=== PATIENT | male | born 1960 | race Caucasian/White ===

== ENCOUNTER → 2021-02-16 | Outpatient (CLI) | payer SELFPAY | LOC: M LABSMTC 13:02 | PROVIDERS: ATTEND Pediatrics | DX: Z20.822 Contact with and (suspected) exposure to COVID-19 (principal) ==

== ENCOUNTER → 2021-02-25 | Outpatient (CLI) | payer SELFPAY | LOC: M LABSMTC 14:07 | PROVIDERS: ATTEND Pediatrics | DX: Z20.822 Contact with and (suspected) exposure to COVID-19 (principal) ==

== ENCOUNTER → 2022-03-15 | Outpatient (CLI) | payer BC, SELFPAY | LOC: M SOG 14:35 | PROVIDERS: ATTEND Orthopaedic Surgery Adult Reconstructive Orthopaedic Surgery | DX: M25.461 Effusion, right knee (principal); M25.561 Pain in right knee ==

== ENCOUNTER → 2022-04-08 | Outpatient (CLI) | payer BC | LOC: M PLAIMG 15:46 | PROVIDERS: ATTEND Orthopaedic Surgery Adult Reconstructive Orthopaedic Surgery | DX: M70.41 Prepatellar bursitis, right knee (principal); S83.206A Unspecified tear of unspecified meniscus, current injury, right knee, initial encounter; M94.261 Chondromalacia, right knee; M25.461 Effusion, right knee; X58.XXXA Exposure to other specified factors, initial encounter; Y92.9 Unspecified place or not applicable; Y99.9 Unspecified external cause status ==

== ENCOUNTER → 2023-01-25 | Outpatient (CLI) | payer BC ==
[2023-01-25 16:43] LABS: ALBUMIN 3.7 G/DL (3.2-5.2); ALKALINE PHOSPHATASE 86 U/L (46-116); ALT/SGPT 24 U/L (7.0-40); AST/SGOT 20 U/L (<34); BILIRUBIN,TOTAL 0.9 MG/DL (0.3-1.2); BLOOD UREA NITROGEN 16 MG/DL (9-23); CALCIUM LEVEL 9.5 MG/DL (8.3-10.6); CARBON DIOXIDE LEVEL 31 MMOL/L (20-31); CHLORIDE LEVEL 104 MMOL/L (98-107); CHOLESTEROL LEVEL 221 MG/DL (<200); CHOLESTEROL RISK RATIO 3.82 (<5); CREATININE FOR GFR 1.01 MG/DL (0.70-1.30); GLOMERULAR FILTRATION RATE > 60.0 (>49); GLUCOSE, FASTING 84 MG/DL (74-106); HDL CHOLESTEROL 57.8 MG/DL (>40); NON-HDL-C 163 MG/DL; POTASSIUM SERUM 4.5 MMOL/L (3.5-5.1); SODIUM LEVEL 140 MMOL/L (136-145); TOTAL PROTEIN 6.9 G/DL (5.7-8.2); TRIGLYCERIDES LEVEL 71 MG/DL (<150)
[2023-01-25 17:31] LABS: HEMOGLOBIN A1c 5.5 % (4.0-6.0)
== END ==
LOC: M WUC 13:14
PROVIDERS: ATTEND Internal Medicine
DX: E78.5 Hyperlipidemia, unspecified (principal); R73.9 Hyperglycemia, unspecified

== ENCOUNTER → 2023-07-22 | Outpatient (REF) | payer BC ==
[2023-07-22 18:31] LABS: HEMOGLOBIN A1c 5.1 % (4.0-6.0)
[2023-07-22 18:33] LABS: ALBUMIN 3.7 G/DL (3.2-5.2); ALKALINE PHOSPHATASE 78 U/L (46-116); ALT/SGPT 14 U/L (7.0-40); AST/SGOT 10 U/L (<34); BLOOD UREA NITROGEN 14 MG/DL (9-23); CALCIUM LEVEL 8.7 MG/DL (8.3-10.6); CARBON DIOXIDE LEVEL 26 MMOL/L (20-31); CHLORIDE LEVEL 107 MMOL/L (98-107); CHOLESTEROL LEVEL 190 MG/DL (<200); CHOLESTEROL RISK RATIO 3.45 (<5); CREATININE FOR GFR 0.92 MG/DL (0.70-1.30); GLOMERULAR FILTRATION RATE > 60.0 (>49); GLUCOSE, FASTING 75 MG/DL (74-106); LDL CHOLESTEROL 124.2 MG/DL (<100); POTASSIUM SERUM 4.3 MMOL/L (3.5-5.1); SODIUM LEVEL 142 MMOL/L (136-145); TOTAL PROTEIN 6.7 G/DL (5.7-8.2); TRIGLYCERIDES LEVEL 54 MG/DL (<150)
== END ==
LOC: M LABDRAWP 17:50
PROVIDERS: ATTEND Internal Medicine
DX: E78.5 Hyperlipidemia, unspecified (principal); R73.9 Hyperglycemia, unspecified

== ENCOUNTER 2023-12-01 07:43 | Day surgery (SDC) | payer BC ==
[~2023-12-01] VITALS: Ht 165.1 cm; Wt 99.6 kg
[~2023-12-01 07:43] MED LIST: NS 1,000 ML IV ONE; UNRESOLVED CLARIFICATION ENTRY XX SCH; propofoL 200 MG/20 ML VIAL As Ordered ONE
[2023-12-01] MEDS ORDERED: MIDAZOLAM INJ 2MG/2ML VIAL As Ordered ONE (08:46)
[2023-12-01 09:06] VITALS: TEMP 97.2
[2023-12-01 09:25] VITALS: BP 128/69; O2SAT 95
== END 2023-12-01 09:55 | disposition home or self-care (01) ==
LOC: M OPP 07:43
PROVIDERS: ATTEND Internal Medicine Gastroenterology
DX: Z12.11 Encounter for screening for malignant neoplasm of colon (principal); K64.8 Other hemorrhoids; Z86.010 Personal history of colon polyps; Z98.0 Intestinal bypass and anastomosis status; Z87.19 Personal history of other diseases of the digestive system; G47.30 Sleep apnea, unspecified; Z90.49 Acquired absence of other specified parts of digestive tract
CPT/HCPCS: 45378; J2250

== ENCOUNTER → 2024-01-25 | Outpatient (CLI) | payer BC ==
[2024-01-25 13:11] LABS: HEMOGLOBIN A1c 5.5 % (4.0-6.0)
[2024-01-25 13:15] LABS: ALBUMIN 3.8 G/DL (3.2-5.2); ALKALINE PHOSPHATASE 87 U/L (46-116); ALT/SGPT 29 U/L (7.0-40); AST/SGOT 21 U/L (<34); BLOOD UREA NITROGEN 17 MG/DL (9-23); CALCIUM LEVEL 9.3 MG/DL (8.3-10.6); CARBON DIOXIDE LEVEL 30 MMOL/L (20-31); CHLORIDE LEVEL 105 MMOL/L (98-107); CHOLESTEROL LEVEL 215 MG/DL (<200); CREATININE FOR GFR 0.99 MG/DL (0.70-1.30); GLOMERULAR FILTRATION RATE > 60.0 (>49); HDL CHOLESTEROL 51.1 MG/DL (>40); LDL CHOLESTEROL 147.5 MG/DL (<100); NON-HDL-C 163.9 MG/DL; POTASSIUM SERUM 4.7 MMOL/L (3.5-5.1); SODIUM LEVEL 141 MMOL/L (136-145); TRIGLYCERIDES LEVEL 82 MG/DL (<150)
[2024-01-26 10:52] LABS: GLUCOSE, FASTING 89 MG/DL (74-106)
== END ==
LOC: M LAB 12:14
PROVIDERS: ATTEND Internal Medicine
DX: E78.5 Hyperlipidemia, unspecified (principal); R73.9 Hyperglycemia, unspecified

== ENCOUNTER → 2024-07-25 | Outpatient (CLI) | payer BC ==
[2024-07-25 13:27] LABS: HEMOGLOBIN A1c 5.4 % (4.0-6.0)
[2024-07-25 13:41] LABS: ALKALINE PHOSPHATASE 84 U/L (46-116); ALT/SGPT 25 U/L (7.0-40); AST/SGOT 17 U/L (<34); BILIRUBIN,TOTAL 1.3 MG/DL (0.3-1.2); BLOOD UREA NITROGEN 16 MG/DL (9-23); CARBON DIOXIDE LEVEL 30 MMOL/L (20-31); CHLORIDE LEVEL 107 MMOL/L (98-107); CHOLESTEROL LEVEL 206 MG/DL (<200); CHOLESTEROL RISK RATIO 4.28 (<5); CREATININE FOR GFR 1.08 MG/DL (0.70-1.30); GLOMERULAR FILTRATION RATE > 60.0 (>49); GLUCOSE, FASTING 88 MG/DL (74-106); HDL CHOLESTEROL 48.1 MG/DL (>40); LDL CHOLESTEROL 142.5 MG/DL (<100); NON-HDL-C 157.9 MG/DL; POTASSIUM SERUM 4.6 MMOL/L (3.5-5.1); SODIUM LEVEL 138 MMOL/L (136-145); TOTAL PROTEIN 7.1 G/DL (5.7-8.2); TRIGLYCERIDES LEVEL 77 MG/DL (<150)
== END ==
LOC: M LAB 12:24
PROVIDERS: ATTEND Internal Medicine
DX: E78.5 Hyperlipidemia, unspecified (principal); R73.9 Hyperglycemia, unspecified

== ENCOUNTER → 2024-10-23 | Outpatient (CLI) | payer BC ==
[2024-10-23 18:17] LABS: HEMOGLOBIN A1c 5.5 % (4.0-6.0)
[2024-10-23 18:25] LABS: ALBUMIN 3.8 G/DL (3.2-5.2); ALKALINE PHOSPHATASE 81 U/L (40-129); ALT/SGPT 24 U/L (7.0-40); AST/SGOT 20 U/L (<34); BILIRUBIN,TOTAL 0.7 MG/DL (0.3-1.2); BLOOD UREA NITROGEN 13 MG/DL (9-23); CALCIUM LEVEL 9.7 MG/DL (8.3-10.6); CARBON DIOXIDE LEVEL 30 MMOL/L (20-31); CHLORIDE LEVEL 105 MMOL/L (98-107); CHOLESTEROL LEVEL 234 MG/DL (<200); CHOLESTEROL RISK RATIO 4.75 (<5); CREATININE FOR GFR 0.99 MG/DL (0.70-1.30); GLOMERULAR FILTRATION RATE > 60.0 (>49); HDL CHOLESTEROL 49.2 MG/DL (>40); LDL CHOLESTEROL 167.6 MG/DL (<100); NON-HDL-C 184.8 MG/DL; POTASSIUM SERUM 4.5 MMOL/L (3.5-5.1); SODIUM LEVEL 139 MMOL/L (136-145); TOTAL PROTEIN 7.2 G/DL (5.7-8.2); TRIGLYCERIDES LEVEL 86 MG/DL (<150)
[2024-10-24 06:44] LABS: GLUCOSE, FASTING 87 MG/DL (74-106)
== END ==
LOC: M LAB 17:17
PROVIDERS: ATTEND Internal Medicine
DX: E78.5 Hyperlipidemia, unspecified (principal); R73.9 Hyperglycemia, unspecified

== ENCOUNTER 2025-03-25 04:30 | Emergency (ER) | payer BC, OTHER ==
[~2025-03-25] VITALS: Ht 165.1 cm; Wt 100.8 kg
[2025-03-25 04:36] VITALS: TEMP 97
[2025-03-25] MEDS: KETOROLAC 30 MG/ML 1ML VIAL IV ONE ×2 (05:30→10:35)
[2025-03-25 05:36] LABS: KETONE, URINE AUTO RFX TRACE mg/dL (NEGATIVE); LEUKOCYTE ESTERASE UR AUTO RFX NEGATIVE (NEGATIVE); NITRITE, URINE AUTO RFX NEGATIVE (NEGATIVE); RBC, URINE AUTO RFX 0 /HPF (0-3); SQUAM EPITHELIAL CELL UR AURFX 0 /HPF (0-6); WBC, URINE AUTO RFX 0 /HPF (0-3)
[2025-03-25] MEDS: NS (Normal Saline) 0.9% 1,000 ML IV ONE (05:37)
[2025-03-25 05:39] LABS: BASO # 0.1 10^3/uL (0.0-0.2); BASO % 1.5 % (0.0-1.0); EOS # 0.2 10^3/uL (0.0-0.5); EOS % 2.2 % (0.0-3.0); HEMATOCRIT 48.2 % (42.0-52.0); HEMOGLOBIN 16.2 g/dl (13.5-17.5); LYMPH # 1.8 10^3/uL (1.5-5.0); LYMPH % 23.7 % (24.0-44.0); MEAN CORPUSCULAR HEMOGLOBIN 28.8 pg (27.0-33.0); MEAN CORPUSCULAR HGB CONC 33.6 g/dl (32.0-36.5); MEAN CORPUSCULAR VOLUME 85.8 fl (80.0-96.0); MONO # 0.6 10^3/uL (0.0-0.8); MONO % 8.2 % (2.0-8.0); PLATELET COUNT, AUTOMATED 257 10^3/uL (150-450); RED BLOOD COUNT 5.62 10^6/uL (4.30-6.10); WHITE BLOOD COUNT 7.8 10^3/uL (4.0-10.0)
[2025-03-25 05:52] LABS: BLOOD UREA NITROGEN 12 MG/DL (9-23); CALCIUM LEVEL 8.9 MG/DL (8.3-10.6); CARBON DIOXIDE LEVEL 28 MMOL/L (20-31); CHLORIDE LEVEL 105 MMOL/L (98-107); CREATININE FOR GFR 0.94 MG/DL (0.70-1.30); GLOMERULAR FILTRATION RATE > 90.0 (>49); GLUCOSE, FASTING 99 MG/DL (74-106); POTASSIUM SERUM 4.9 MMOL/L (3.5-5.1); SODIUM LEVEL 141 MMOL/L (136-145)
[2025-03-25 06:18] LABS: CPK CREATINE PHOSPHOKINASE 138 U/L (46-171)
[2025-03-25] MEDS ORDERED: KETO-204 PO (09:13)
[2025-03-25] MEDS ORDERED: CYCL5TAB4 PO (09:13)
[2025-03-25 10:30] VITALS: BP 153/76
[2025-03-25 10:31] VITALS: O2SAT 97
== END 2025-03-25 11:06 | disposition home or self-care (01) ==
LOC: M ED 04:30
DX: R10.9 Unspecified abdominal pain (principal); E78.5 Hyperlipidemia, unspecified; F10.10 Alcohol abuse, uncomplicated; Z79.2 Long term (current) use of antibiotics; Z79.899 Other long term (current) drug therapy
CPT/HCPCS: 74176; 80048; 81001; 82550; 85025; 93041; 96361; 96374; 96375; 99285; J1885

== ENCOUNTER → 2025-11-01 | Outpatient (CLI) | payer OTHER ==
[~2025-11-01] MED LIST changes: +CYCL5TAB4 PO; +KETO-204 PO; -NS 1,000 ML IV ONE; -UNRESOLVED CLARIFICATION ENTRY XX SCH; -propofoL 200 MG/20 ML VIAL As Ordered ONE
[2025-11-01 10:20] LABS: ESTIMATED AVERAGE GLUCOSE 114.0 MG/DL (60-110)
[2025-11-01 10:37] LABS: ALT/SGPT 32 U/L (7.0-40); AST/SGOT 26 U/L (<34); CALCIUM LEVEL 8.2 MG/DL (8.3-10.6); CARBON DIOXIDE LEVEL 28 MMOL/L (20-31); CHLORIDE LEVEL 108 MMOL/L (98-107); CHOLESTEROL LEVEL 244 MG/DL (<200); CHOLESTEROL RISK RATIO 4.67 (<5); CREATININE FOR GFR 0.94 MG/DL (0.70-1.30); GLOMERULAR FILTRATION RATE > 90.0 (>49); LDL CHOLESTEROL 173.8 MG/DL (<100); NON-HDL-C 191.8 MG/DL; POTASSIUM SERUM 4.9 MMOL/L (3.5-5.1); SODIUM LEVEL 143 MMOL/L (136-145); TRIGLYCERIDES LEVEL 90 MG/DL (<150)
== END ==
LOC: M LAB 09:21
PROVIDERS: ATTEND Internal Medicine
DX: E78.5 Hyperlipidemia, unspecified (principal); R73.9 Hyperglycemia, unspecified